=== PATIENT | female | born 1945 | race Caucasian/White ===

== ENCOUNTER → 2020-08-20 | Outpatient (CLI) | payer MEDICARE | END | disposition home or self-care (01) | LOC: SHCH 15:00 | PROVIDERS: ATTEND Internal Medicine | DX: I25.3 Aneurysm of heart (principal); I34.0 Nonrheumatic mitral (valve) insufficiency; I51.7 Cardiomegaly; J44.9 Chronic obstructive pulmonary disease, unspecified; F17.210 Nicotine dependence, cigarettes, uncomplicated | CPT/HCPCS: 93306; 93356; 93970 ==